=== PATIENT | female | born 1935 | race Hispanic/Latino ===

== ENCOUNTER → 2020-11-23 09:54 | Outpatient (CLI) | payer OTHER, SELFPAY ==
[2020-11-23 10:49] LABS: COVID19 -Nasal RAPID Negative (Negative)
== END ==
PROVIDERS: PCP Physician Assistant; Visit Provider Nurse Practitioner Family
DX: Z20.822 Contact with and (suspected) exposure to COVID-19 (principal)
CPT/HCPCS: 87635

== ENCOUNTER → 2020-11-23 14:31 | Outpatient (CLI) | payer OTHER, SELFPAY ==
[2020-11-23 15:36] LABS: Add Manual Diff / Slide Review NO; Basophils Absolute Auto 0 /uL (0-100); Basophils Percent Auto 0.2 % (0-2); Eosinophils Absolute Auto 100 /uL (0-450); Eosinophils Percent Auto 1.5 % (2-4); Hematocrit 41.5 % (36-46); Hemoglobin 13.9 g/dL (12.0-16.0); Lymphocytes Absolute Auto 2900 /uL (1100-4500); Lymphocytes Percent Auto 34.2 % (25-40); Mean Corpuscular HGB Conc 33.4 % (30-36); Mean Corpuscular Hemoglobin 29.9 PG (26-34); Mean Corpuscular Volume 89.3 fL (80-100); Monocytes Absolute Auto 600 /uL (0-900); Monocytes Percent Auto 6.8 % (3-14); Neutrophils Absolute Auto 4800 /uL (1500-7000); Neutrophils Percent Auto 57.3 % (50-75); Platelet Count 299 X10^3/uL (150-400); Red Blood Cell Count 4.64 X10^6/uL (4.0-5.2); Red Cell Distribution Width 13.7 % (11.6-14.8); White Blood Cell Count 8.3 X10^3/uL (4.5-11.0)
== END ==
PROVIDERS: PCP Physician Assistant; Referring Provider Orthopaedic Surgery; Visit Provider Orthopaedic Surgery
DX: Z01.812 Encounter for preprocedural laboratory examination (principal); Z20.822 Contact with and (suspected) exposure to COVID-19; I10 Essential (primary) hypertension
CPT/HCPCS: 36415; 85025; 87635; C9803

== ENCOUNTER 2020-11-24 06:20 | Day surgery (SDC) | payer OTHER, SELFPAY ==
[2020-11-24] VITALS (15 sets, daily range): BP systolic 127–167; BP diastolic 66–86; PULSE 82–95; RESP 10–20; TEMP 36.3–37; O2SAT 94–99; BMI 25.1
[2020-11-24] MEDS: LACTATED RINGERS 1,000 ML 42 ML IV (06:59)
--- NOTE | 2020-11-24 07:28 | PM.PREOP ---
Pre-operative Note COVID-19 COVID-19 status: Negative Result date/Date tested (Pos, Neg/Pending): 11/23/20 Interval Note History & Physical reviewed/Exam performed by Physician: Yes Changes to H&P: No
--- NOTE | 2020-11-24 07:41 | P.OP_ITS ---
Operative Date/Time/Diagnoses Date of procedure: 11/24/20 Time of procedure: 09:06 Pre-op diagnosis: Cervical stenosis with myelopathy Post-op diagnosis: same Procedure & Clinicians Procedure: C5-6 ACDF with cage Iliac crest bone graft aspirate Use of microscope Same procedure as scheduled: Yes Indications: [age] year old female with intractable pain from myelopathy. They had failed conservative management and requested operative intervention. Risks and benefits of surgery were discussed and appropriate consents were obtained. Surgeon: Ramón Cheung [facility] Art Therapist: Lori Shepherd Anesthesia Type: General Operative Notes Findings: None Closure Type: primary Specimen(s): none sent Prosthetic devices, grafts, tissues, transplants, or devices: Flavio JAZ-C Estimated Blood Loss (mL): 5 Procedure in detail: Patient was brought to the operating room and intubated on the table. A time-out was performed. Preoperative antibiotics were given. The neck was prepped and draped in the standard sterile fashion. Using a skin fold, we made a 3 cm oblique incision on the left side. We used Bovie to go through the platysma and then did a standard anterolateral blunt dissection down to the precervical fascia. Fascia was nicked and elevated up. A marker was placed and x-ray was taken for localization. We then subperiosteally elevated up the longus colli muscles. Self-retaining retractors were placed. [place] pins were placed. We then brought in the microscope. A scalpel used to perform an annulotomy. We then used a combination of pituitaries and curettes and Kerrison to perform a complete anterior diskectomy at C5-6. We used the bur to take down the posterior osteophytes. We took down the PLL and used Kerrison to remove any posterior disc material and osteophytes. At the end we could from the nerve hook cephalad caudally and out the foramen and everything was opened. A small stab incision was made over the left anterior iliac crest. A Jamshidi needle was advanced into the pelvis and 2 mL of bone marrow was aspirated. We then used the trials. The 5 mm height was completely loose and we had to go up to 6 mm. We then packed a 12 x 15 x 6 mm JAZ-C cage with Primagen bone graft and the iliac crest harvest. The cage was placed under fluoroscopic guidance. We then placed our two locking plates. The self-retaining retractors and [place] pins were removed and final x-rays taken. The wound was irrigated. There was no bleeding. The carotid was beating nicely. The platysma was closed. The superficial was closed. The skin was closed. A sterile dressing was placed. They were then extubated and brought to recovery room with no complications. Complications: none Post-operative Condition: stable Disposition: PACU Plan for aftercare: Overnight admission. Up with physical therapy. Soft collar for comfort.
[2020-11-24] MEDS: CEFAZOLIN 2 GM/100 ML FROZ.PIGGY IV (07:45)
[2020-11-24] MEDS: fentaNYL 100 MCG/2 ML INJ 50 MCG IV (07:59)
--- NOTE | 2020-11-24 08:00 | DI.RAD.S_ITS ---
PROCEDURE: XR CERVICAL SPINE 2V OR 3V INDICATIONS: C5-6 ACDF TECHNIQUE: Two intraoperative fluoroscopic spot view(s) of the cervical spine were acquired. COMPARISON: None. FINDINGS: There is C5-6 disc spacer and anterior fusion hardware. Overall alignment remains normal. There is moderate disc height loss and spurring at C3-4. IMPRESSION: Expected appearance of C5-6 ACDF. Dictated by: Julieta Iyer M.D. on 11/24/2020 at 10:20 Approved by: Julieta Iyer M.D. on 11/24/2020 at 10:21
--- NOTE | 2020-11-24 08:16 | SUR.OPER ---
Supine, head on gel donut. Arms padded with gel pads, tucked at sides, towel roll under shoulders. Safety belt at thigh. Legs uncrossed.
[2020-11-24] MEDS: BUPIVACAINE 0.25% W/ EPI (PF) 10 ML VIAL 20 ML INJ (08:29)
[2020-11-24] MEDS: THROMBIN (RECOMBINANT) 5,000 UNIT VIAL 5000 UNIT TOP (08:29)
[2020-11-24] MEDS: SODIUM CHLORIDE 0.9% 1,000 ML, GENTAMICIN 80 MG IRR (08:30)
[2020-11-24] MEDS: OXYCODONE IR 5 MG TABLET PO (09:52)
--- NOTE | 2020-11-24 10:35 | SUR.PHASEI ---
Pt was administered 0.8 of narcan just prior to arrival to PACU. Pt was held in pacu until 1028 then transported to room 228 in ICU for continue montoring until 1100. Pt will be under the care of abimael fuentes in ICU. She was transferred in stable condition
[2020-11-24] MEDS: LACTATED RINGERS 1,000 ML 125 ML IV ×2 (10:45→16:52)
--- NOTE | 2020-11-24 13:00 | PT.IIE ---
Current Diagnoses Spinal stenosis, cervical region (11/24/20) Surgery Performed Operation Date: 11/24/20 07:45 Actual Procedures p C56 anterior cervical discectomy and fusion w/ bone graft(Not Applicable) - Ramón Cheung MD Medical History (Last Updated 11/22/20 @ 17:08 by Sadaf Gonzalez RN) Arthritis Depression Fibromyalgia Stenosis of cervical spine with myelopathy Physical Therapy Inpatient Evaluation/Re-Eval M1 PT/OT-IP Prior Functional Status Start: 11/24/20 14:57 Freq: NEEDED Status: Active Protocol: Document 11/24/20 13:00 AB (Rec: 11/24/20 15:44 AB [id number]) Medical Review Prior Functional Status Medical History Reviewed Yes Communication able to make needs known Mobility and Gait pt stated that she is modified independent with mobility and uses a FWW for ambulation at all times; stated that she needs assistance with meals Social History Household Members friend(s) Living Arrangements House Number of Floors (Floors) Two Floors Number of Stairs To Enter/Railing? has steps to get into the house with R rail and also stairs to get to 2nd level bedroom; pt stated she does not remember how many steps there are Home Environment Standard Height Toilet,Walk in Shower Home Equipment Front Wheel Walker,Grab Bars In Shower Additional Social History Comment pt lives with a roommate but pt plans to go to her daughter -in-law's house upon d/c. M2 PT-IP Current Condition Start: 11/24/20 14:57 Freq: NEEDED Status: Active Protocol: Document 11/24/20 13:00 AB (Rec: 11/24/20 15:44 AB [id number]) Physical Therapy Current Condition Current Condition Evaluation Date 11/24/20 Treatment Diagnosis s/p C5-6 ACDF; difficulty in walking Onset Date 11/24/20 Precautions Cervical Spine Precautions Soft Collar for Comfort,No Heavy Lifting,Log Roll M3 PT-IP Subjective Start: 11/24/20 14:57 Freq: NEEDED Status: Active Protocol: Document 11/24/20 13:00 AB (Rec: 11/24/20 15:44 AB [id number]) Subjective Physical Therapy Visit Type Type Initial Evaluation Visit Start Time 13:00 Visit Stop Time 13:40 Total Visit Minutes 40 Number of WIND UP OPERATOR Visits 0 Physical Therapy Visit Comments Patient Comments pt is agreeable to do PT Therapy Pain Assessment Pain When Pain Assessed At Rest Pain Present Pain Present Pain Reported Location Neck Intensity 7 Scale Used Numeric (0 - 10) Pain Management Techniques Apply Heat,Modification of Treatment,Re-positioning, Timing of Activity with Medications M4 PT-IP Mobility and Gait Start: 11/24/20 14:57 Freq: NEEDED Status: Active Protocol: Document 11/24/20 13:00 AB (Rec: 11/24/20 15:44 AB [id number]) PT-Bed Mobility Assessment Supine to Sit Supine to Sit Standby Assistance Sit to Supine Sit to Supine Standby Assistance PT-Transfer Assessment Sit to and From Stand Sit to and from Stand Moderate Assistance,1 Person Assistance,Use of Upper Extremities Equipment Transfer Assistive Device Gait Belt,Front Wheeled Walker Orthotic/Prosthetic Devices or Brace: Yes Transfers Transfer Destination Toilet Transfer Technique ambulated using FWW Transfer Ability Level of Assist Moderate Assistance,Maximum Assistance,1 Person Assistance ,Use of Upper Extremities Comments Mobility Comments educated pt on cervical precautions and log roll bed mobility. pt c/o increase pain and can be short and snappy with responses and directs her own care. completed supine to sit cued for log roll but pt did not follow and gets irritated when corrected. increase posterior trunk leaning with initial sitting requiring mod to max A for support. pt completed sit to stand mod A and cues and requested to use the toilet. pt ambulated to the toilet using FWW mod to max A and cues. presents with unsteady shuffling gait. completed sit to stand from the toilet max A and ambulated to the sink using FWW mod to max A. pt was able to maintain standing mod A while completing handwashing. requested to go back to bed and ambulated towards the bed using FWW mod to max A. (+) LOB requiring max A for rebalancing. pt completed sit to supine SBA but did not follow log roll bed mobililty despite cues. positioned pt in bed. call light and table placed within reach. Gait Assessment Gait Gait Assistance Required: Moderate Assistance,Maximum Assistance,1 Person Assist Distance (Feet) 15 Able to Maintain Weight Bearing Status Yes During Gait Assistive Devices Assistive Device Gait Belt,Front Wheeled Walker Orthotic/Prosthetic Devices or Brace: Yes Gait Deviations General Gait Pattern Ataxic,Decreased Stride Length ,Decreased Feet Clearance, Narrow Based Gait,Step-to Gait Factors Limiting Gait Function Factors Limiting Gait Function Decreased Activity Tolerance, Decreased Strength,Difficulty Following Directions,Limited Range of Motion,Pain,Poor Balance,Poor Safety Awareness PT-Balance Assessment Sitting Balance and Reactions Static Sitting Balance Ability Fair Dynamic Sitting Balance Ability Poor Standing Balance and Reactions Static Standing Balance Ability Poor Dynamic Standing Balance Ability Poor Device Used FWW M5 PT-IP Objective Assessments Start: 11/24/20 14:57 Freq: NEEDED Status: Active Protocol: Document 11/24/20 13:00 AB (Rec: 11/24/20 15:44 AB [id number]) Orientation Orientation/Cognition Level of Alertness Alert Orientation Name Language Function Ability No Deficits Noted Safety Awareness Decreased Safety Awareness Memory Description Short Term Impaired Gross Range of Motion Lower Extremity ROM Assessment Within Functional Limits Strength Lower Extremity Strength Assessment Bilaterally Impaired Hip 3/5 Knee 3+/5 Coordination Assessment Gross Coordination Gross Coordination WNL Sensation Assessment Sensation Gross Sensation Right UE Impaired,Left UE Impaired,Right LE Impaired, Left LE Impaired Sensation Description Numbness Comments Sensation Comments stated that she has chronic BUE/LE numbness M6 PT-IP Treatment Start: 11/24/20 14:57 Freq: NEEDED Status: Active Protocol: Document 11/24/20 13:00 AB (Rec: 11/24/20 15:44 AB [id number]) Physical Therapy Treatment Education Education Provided Precautions,Weight Bearing Status,Post-Op Packet,Safety M7 PT-IP Assessment and Plan Start: 11/24/20 14:57 Freq: NEEDED Status: Active Protocol: Document 11/24/20 13:00 AB (Rec: 11/24/20 15:44 AB [id number]) PT Summary Assessment and Plan Potential Rehabilitation Potential Fair Status of Condition at Evaluation Evolving Summary Impairments Pain,ROM,Strength,Balance, Coordination,Sensation,Tone, Cognition,Bed Mobility, Transfers,Gait,Activity Tolerance Assessment Summary pt requiring mod to max A with mobility and c/o increase pain. pt also directs her own care and resistant to instructions. pt may require SNF rehab but if pt goes home, will need caregiver training and stair climbing training. will continue to assess progress. Goals Bed Mobility Goal Independent Transfer Goal Independent,Front Wheeled Walker Gait Goal Independent,Front Wheel Walker Gait Distance 150 Other Goals up/down 15 steps R rail ascending SBA Days to Meet Goals 0 Frequency of Treatment Frequency Of Treatment Twice a Day Treatment Plan Physical Therapy Treatment Plan Bed Mobility Training,Transfer Training,Gait Training, Therapeutic Exercise,Balance Retraining,Post Op Education, Discharge Planning,Hot or Cold Pack,Neuromuscular Re-ed, Coordination Retraining,Manual Therapy Recommendations To Nursing Amount of Assist Needed 1 Person Assist Discharge Recommendations PT Discharge Recommendations Home with 27/05 Assist,Home Health,SNF Rehab Transportation Needs at Discharge Private Vehicle,Wheelchair/ Cabulance
[2020-11-24] MEDS: HYDROCODONE/ACET 5/325 TABLET 1 TAB PO (14:07)
[2020-11-24] MEDS: hydrOXYzine pamoate 25 MG CAPSULE PO ×2 (14:07→19:57)
--- NOTE | 2020-11-24 15:23 | PC.NURSE ---
Postop Note Received pt to room 228 from PACU at 1035 for close monitoring until 1100 post Narcan administration. Pt on the monitor during this time, SR in the 80s. Pt is alert and oriented, able to make needs known. Reports pain 10/10 to neck but reports the oxycodone helped me. Educated on pain scale. sPo2 97-98% RA. Dressing to neck C/D/I with soft collar in place. Tingling/numbness to BUEs present, pt reports improved from preop, BUEs weak. BLEs heavy but pt reports unchanged from preop. Oriented to room and to call light/bed/tv controls. Call light within reach.
[2020-11-24] MEDS: CEFAZOLIN 1 GM/50 ML FROZ.PIGGY IV ×2 (16:38→23:17)
--- NOTE | 2020-11-24 16:42 | OT.IPNOTE ---
Pt not wanting to get up at this time , able to talk to pt about prior levle of care and home set-up.
--- NOTE | 2020-11-24 17:18 | DIET.PN ---
Dietary Progress Note Assessment: 85y F admitted for planned anterior cervical discectomy referred to nutrition for recent weight loss. Pt has severe cord compression at C6 c pain per surgeon note which is affecting her fine motor skills and appetite. Pt reports >3kg weight loss over past 3mo. HT: 142.2cm WT: 50.8kg BMI: 25.1 MNA:9 @ risk Eliot: 18 Nutrition Diagnosis: inadequate protein intake r/t increased protein needs and reduced appetite aeb pt reports sx of reduced fine motor skills and pain limiting appetite, pt is post-surgical so requires increased protein for healing, MNA 9. Interventions: 1. Recc softer texture foods s/p anterior surgical surgery. 2. Recc Ensures bid to be consumed between meals to support pro needs. Diet Order: General
[2020-11-24] MEDS: HYDROCODONE/ACET 5/325 TABLET 2 TAB PO (19:57)
[2020-11-24] MEDS: GABAPENTIN 300 MG CAPSULE PO (21:14)
[2020-11-24] MEDS: DOCUSATE 100 MG CAPSULE PO (21:14)
[2020-11-24] MEDS: SENNOSIDES 8.6 MG TABLET 17.2 MG PO (21:14)
[2020-11-24] MEDS: CELECOXIB 200 MG CAPSULE PO (21:14)
--- NOTE | 2020-11-25 00:55 | PC.NURSE ---
2334 patient is alert and oriented. Breath sounds CTA with RA sat of 97%. HRR with BP of 139/78 consistent with previous readings. Denies nausea. BT present and is passing flatus. Denies dysuria, frequency or urgency with urination and is continent. Able to turn self in bed. Up to bathroom with walker and 1 assist. Dressing to anterior neck/left iliac crest are CDI; wearing soft collar. States pain in posterior neck is 2/10 but tolerable and declines medication; provided with ice pack. Bilateral hand pain which she states was present pre-op and now much improved. Wearing bilateral foot SCD's. Fall risk score is high and bed alarm is activated.
[2020-11-25] MEDS: LACTATED RINGERS 1,000 ML 125 ML IV (01:28)
[2020-11-25 04:00] VITALS: BP 123/61; PULSE 77; RESP 18; TEMP 36.8; O2SAT 95
[2020-11-25] MEDS: HYDROCODONE/ACET 5/325 TABLET 1 TAB PO (04:35)
[2020-11-25] MEDS: PANTOPRAZOLE 20 MG TABLET PO (06:13)
--- NOTE | 2020-11-25 07:50 | PM.PNPO.1 ---
Subjective Subjective Date Patient Seen: 11/25/20 Time Patient Seen: 07:50 Interval history: She is doing well. Still pain at the base of the neck but the arms feel much better. Exam Vital Signs (past 8 hours): - 11/25/20 04:00 Temperature 98.3 F Pulse Rate 77 Respiratory Rate 18 Blood Pressure 123/61 Pulse Oximetry 95 Oxygen Delivery Method Room Air Oxygen Flow Rate 0 Const Orientation: alert and oriented x3 Back/Spine/Pelvis Other: CDI. 5/5 motor both upper extremities except for slight 5-/5 bilateral counter intelligence agent Objective Labs Labs: Laboratory Results - last 24 hr 11/24/20 11:05 Nasal Screen MRSA (PCR) Negative for mrsa [facility] Medical History (Updated 11/22/20 @ 17:08 by Sadaf Gonzalez RN) Arthritis Depression Fibromyalgia Stenosis of cervical spine with myelopathy Social History household members: friend(s) Smoking Status: Never smoker alcohol intake: never Assessment & Plan Post-op Postoperative Procedures: Procedures Operation Date: 11/24/20 07:45 Actual Procedures Side Surgeon p C56 anterior cervical discectomy and fusion w/ bone graft Not Applicable Ramón Cheung MD She is doing very well. Mobilize with therapy and then discharge home today Quality VTE Deep Vein Thrombosis/Pulmonary Embolism Present on Admission: No
[2020-11-25 07:51] VITALS: BP 142/75; PULSE 80; RESP 19; TEMP 36.3; O2SAT 95
[2020-11-25] MEDS: BENZOCAINE/MENTHOL 1 LOZ PKT 1 EACH PO ×2 (08:34→11:29)
[2020-11-25] MEDS: DULOXETINE 30 MG CAPSULE 90 MG PO (08:36)
[2020-11-25] MEDS: CELECOXIB 200 MG CAPSULE PO (08:37)
[2020-11-25] MEDS: DOCUSATE 100 MG CAPSULE PO (08:37)
[2020-11-25] MEDS: MAGNESIUM HYDROXIDE 30 ML UDC PO (08:41)
--- NOTE | 2020-11-25 09:33 | PC.NURSE ---
Addendum entered by Holly Juárez R.N. 11/25/20 13:10: PT cleared pt for DC. DIL in room. All packed up, changed into personal clothing, nothing remaining in outlets, DC education provided, no questions remain. PIV removed and tolerated well. Provided dressing change supplies. Addendum entered by Holly Juárez R.N. 11/25/20 11:35: OT worked with pt this AM and pt got a little unsteady sitting up in bed. PT requesting caregiver training with daughter in law before DC. DIL will arrive around noon. IS provided to patient and provided education on use. pt able to use 5 times at 1000. Lozenges to help ease throat irritation. Original Note: AM shift note. pt AO and receptive to care. Right hand PIV saline locked and fluids held this AM per order. pt reporting 2/10 pain to neck and tolerable. Breakfast pt requested a lozenge due to pain swallowing harder foods (kirkpatrick) so pt switched to apple sauce and pudding. Soft collar to neck, incision has gauze with tegaderm CDI, left hip site has steri-stips and tegaderm, CDI. Last BM 11/23 and pt asking for bowel medications to assist. I administered docusate and milk of mag this AM with other morning medications.
--- NOTE | 2020-11-25 09:37 | ST.IPSCREEN ---
Screened pt status post ACDF for vocal and swallowing. Pt reported that she fees good and reported no difficulty with swallowing or voice. Written information was provided to pt.
--- NOTE | 2020-11-25 10:20 | OT.IP.EVAL ---
Current Diagnoses Spinal stenosis, cervical region (11/24/20) Surgery Performed Operation Date: 11/24/20 07:45 Actual Procedures p C56 anterior cervical discectomy and fusion w/ bone graft(Not Applicable) - Ramón Cheung MD Past Medical History (Last Updated 11/22/20 @ 17:08 by Sadaf Gonzalez RN) Arthritis Depression Fibromyalgia Stenosis of cervical spine with myelopathy Occupational Therapy Inpatient Evaluation/Re-Eval M1 PT/OT-IP Prior Functional Status Start: 11/24/20 14:57 Freq: NEEDED Status: Active Protocol: Document 11/25/20 11:59 CGR (Rec: 11/25/20 12:18 CGR [id number]) Medical Review Prior Functional Status Medical History Reviewed Yes Communication able to make needs known but is [place] Mobility and Gait Pt stated that she is modified independent with mobility and uses a FWW for ambulation at all times for the last 3 months; stated that she needs assistance with meals Activities of Daily Living and IADL's Pt states that she was IND to MOD I for ADLs and had assist with most IADLs. She states that she needed extra time for all activities. Social History Household Members friend(s) Living Arrangements House Number of Floors (Floors) Two Floors Number of Stairs To Enter/Railing? has steps to get into the house with R rail and also stairs to get to 2nd level bedroom; pt stated she does not remember how many steps there are Home Environment Standard Height Toilet,Walk in Shower Home Equipment Front Wheel Walker,Grab Bars In Shower Additional Social History Comment pt lives with a roommate but pt plans to go to her daughter -in-law's house upon d/c. Information above is for her daughter in laws house. M2 OT-IP Current Condition Start: 11/25/20 11:59 Freq: Status: Active Protocol: Document 11/25/20 11:59 CGR (Rec: 11/25/20 12:18 CGR [id number]) Occupational Therapy Current Condition Current Condition Evaluation Date 11/25/20 Treatment Diagnosis C5-6 ACDF Diagnosis Onset Date 11/24/20 Post Operative Precautions Cervical Spine Precautions Soft Collar for Comfort,No Heavy Lifting,Log Roll M3 OT- IP Subjective and Pain Start: 11/25/20 11:59 Freq: Status: Active Protocol: Document 11/25/20 11:59 CGR (Rec: 11/25/20 12:18 CGR [id number]) OT- Subjective Occupational Therapy Visit Type Type Initial Evaluation Visit Start Time 09:46 Visit Stop Time 10:20 Total Visit Minutes 34 OT Pain Assessment Pain When Pain Assessed At Rest Pain Present Pain Present Denied Pain M4 OT- IP ADL's Start: 11/25/20 11:59 Freq: Status: Active Protocol: Document 11/25/20 11:59 CGR (Rec: 11/25/20 12:18 CGR [id number]) OT [id number] Comments OT Self-Feeding Comments Not meal time OT ADL-Grooming Comments OT Grooming Comments Not performed, pt states she performed this AM OT ADL-Oral Care Comments Oral Care Comments Not performed, pt states she performed this AM OT ADL-Dressing General Eval Lower Body Dressing Ability Maximum Assistance Areas Needing Assistance Socks Comments OT Dressing Comments Pt states her daughter in law will help her with dressing and that she has impregnator helper for dressing and has been trained in the past. OT ADL-Toileting General Evaluation Toileting Ability Standby Assistance Areas Needing Assistance Manage Clothing Comments OT Toileting Comments seated on toilet for urination . OT ADL-Bathing Comments OT Bathing Comments not performed M5 OT- IP IADL's Start: 11/25/20 11:59 Freq: Status: Active Protocol: Document 11/25/20 11:59 CGR (Rec: 11/25/20 12:18 CGR [id number]) OT-Instrumental Activities of Daily Living Deficits IADL Deficits Identified No Deficits Home Safety Awareness Awareness of Need for Assistance at Home Good Awareness Ability to Problem Solve Emergency Able to Problem Solve Situations Medication Management Medication Management No Deficits Identified Money Management Money Management No Deficits Identified Meal Preparation Meal Preparation Caregiver Provides Assist Hunting Sales Leader Hunting Sales Leader Caregiver Provides Assist Driving Driving Comments Pt does not drive M6 OT- IP Functional Cognition Start: 11/25/20 11:59 Freq: Status: Active Protocol: Document 11/25/20 11:59 CGR (Rec: 11/25/20 12:18 CGR [id number]) Cognitive Factors Limiting Selfcare Function Cognitive Ability Level of Alertness Alert Patient Orientation Name,Age,Birthday,Month,Date, Year,Day of Week,Place, Situation Attention Span Ability Capable of Focused Attention, Capable of Sustained Attention Ability to Follow Commands Able to Follow One Step Commands with Increased Time, Able to Follow One Step Commands with Repetition Cognitive Comments Cognitive Assessment Comments Pt appears with minimal memory deficits but she is able to identify errors with minimal assist. OT- Vision and Hearing OT- Hearing Assessment OT- Hearing Assessment Hearing Impaired OT- Vision Assessment Visual Acuity WFL Visual Attentiveness WFL Occular Pursuits WFL Visual Convergence WFL M7 OT- IP Mobility and Balance Start: 11/25/20 11:59 Freq: Status: Active Protocol: Document 11/25/20 11:59 CGR (Rec: 11/25/20 12:18 CGR [id number]) OT- Bed Mobility Assessment Rolling Type of Rolling Log Rolling,Roll to Right Level of Assistance Minimal Assistance Supine to Sit Supine to Sit Assist Contact Guard Assistance Sit to Supine Sit to Supine Assist Contact Guard Assistance Scooting Scooting to Edge of Bed Standby Assistance OT-Transfer Assessment Sit to and From Stand Sit to and from Stand Contact Guard Assistance, Minimal Assistance Transfers Transfer Ability Contact Guard Assistance, Minimal Assistance Technique Transfer Destination Bed,Toilet Transfer Technique Stand Step Pivot Devices Transfer Assistive Devices Gait Belt,Front Wheeled Walker Comments Mobility Comments Pt's FWW is too high for pt. It was adjusted to its lowest setting and discussed with pt that she would benefit from a correctly sized walker. Pt mobilizes with CGA to min a. OT- Gait Assessment Gait Gait Assistance Required: Contact Guard Assist,Minimum Assistance Assistive Devices Assistive Device Gait Belt,Front Wheeled Walker OT- Balance Assessment Sitting Balance and Reactions Static Sitting Balance Ability Poor Dynamic Sitting Balance Ability Poor M8 OT- IP Objective Assessments Start: 11/25/20 11:59 Freq: Status: Active Protocol: Document 11/25/20 11:59 CGR (Rec: 11/25/20 12:18 CGR [id number]) OT Gross Range of Motion Upper Extremity Range of Motion Assessment Within Functional Limits OT Strength Comments Strength Comments grossly 4/5 OT- Coordination Assessment Upper Extremity Finger to Nose Test Within Functional Limits Finger Tapping Test Within Functional Limits OT-Muscle Tone Assessment Muscle Tone WNL Yes OT Sensation Assessment Edema Edema Absent M9 OT- IP Assessment and Plan Start: 11/25/20 11:59 Freq: Status: Active Protocol: Document 11/25/20 11:59 CGR (Rec: 11/25/20 12:18 CGR [id number]) OT Summary Assessment and Plan Potential Rehabilitation Potential Good Analytic Complexity at Evaluation Low Summary OT Impairments Balance,Functional Cognition, Functional Mobility,Dressing, Toileting,Bathing,Toilet Transfers,Shower Transfers, Activity Tolerance Progress Towards Goals Progressing Toward Goals,Slow Progress due to Activity Tolerance Assessment Summary Pt presents as a low complexity evaluation s/p admit. Pt with poor sitting balance requiring max a for a loss of balance. Pt will benefit from continued therapy services and needs 24/7 care upon initial discharge. P.T. notified of pt's loss of balance and will address in caregiver training today. Pt is planned for d/c home with daughter in law. Goals Grooming Goal Independent Dressing Goal Independent Toileting Goal Independent Bathing Goal Independent Toilet Transfer Goal Independent Shower Transfer Goal Independent Days to Meet Goals 10 Frequency of Treatment Frequency Of Treatment Once a Day Treatment Plan OT Treatment Plan ADL Training,Functional Mobility,Patient/Family Education,Discharge Planning Other Treatment Recommendations and Next shower Treatment Focus Discharge Recommendations OT Discharge Recommendations Home with 24/7 Assist Transportation Needs at Discharge Private Vehicle
--- NOTE | 2020-11-25 10:40 | PT-IP ANOTE ---
Attempted to see patient at 10:40, patient refused therapy stating she would like to conserve energy for caregiver training at 12 PM.
[2020-11-25 11:28] VITALS: BP 139/69; PULSE 77; RESP 18; TEMP 36.9; O2SAT 96
--- NOTE | 2020-11-25 12:21 | PT.IPTN ---
Current Diagnoses Spinal stenosis, cervical region (11/24/20) Surgery Performed Operation Date: 11/24/20 07:45 Actual Procedures p C56 anterior cervical discectomy and fusion w/ bone graft(Not Applicable) - Ramón Cheung MD Physical Therapy Treatment Note M2 PT-IP Current Condition Start: 11/24/20 14:57 Freq: NEEDED Status: Active Protocol: Document 11/24/20 13:00 AB (Rec: 11/24/20 15:44 AB [id number]) Physical Therapy Current Condition Current Condition Evaluation Date 11/24/20 Treatment Diagnosis s/p C5-6 ACDF; difficulty in walking Onset Date 11/24/20 Precautions Cervical Spine Precautions Soft Collar for Comfort,No Heavy Lifting,Log Roll M3 PT-IP Subjective Start: 11/24/20 14:57 Freq: NEEDED Status: Active Protocol: Document 11/25/20 11:57 KS (Rec: 11/25/20 12:38 KS [id number]) Subjective Physical Therapy Visit Type Type Treatment Note Visit Start Time 11:57 Visit Stop Time 12:21 Total Visit Minutes 24 Number of BREAST SPLITTER Visits 1 Physical Therapy Visit Comments Patient Comments pt is agreeable to do PT. Pts DIL present for caregiver training. M4 PT-IP Mobility and Gait Start: 11/24/20 14:57 Freq: NEEDED Status: Active Protocol: Document 11/25/20 11:57 KS (Rec: 11/25/20 12:38 KS [id number]) PT-Bed Mobility Assessment Rolling Type of Rolling Log Rolling,Roll to Right Supine to Sit Supine to Sit Standby Assistance Sit to Supine Sit to Supine Contact Guard Assistance Scooting Scooting to Edge of Bed Standby Assistance PT-Transfer Assessment Sit to and From Stand Sit to and from Stand Standby Assistance,Contact Guard Assistance,1 Person Assistance,Use of Upper Extremities Equipment Transfer Assistive Device Gait Belt,Front Wheeled Walker Orthotic/Prosthetic Devices or Brace: Yes Transfers Transfer Destination Bed,Chair,Wheelchair Transfer Ability Level of Assist Standby Assistance,Contact Guard Assistance,1 Person Assistance,Use of Upper Extremities Comments Mobility Comments Pt in chair upon arrival from therapy. BERHANE Oliveros familiar with and able to enrique gaitbelt and provide CGA and cues for sit<>Stand w/ FWW. Pt then ambulated ~10 ft to w/c w/ FWW and CGA by DIL to be transported to stairs for energy conservation. Pt ascended/descended 3 steps x2 w/ R hand rail step to pattern w/ CGA and cues for sequencing provided safely and appropriately by pts DIL. Pt then ambulated additional ~40 ft w/ FWW SBA to CGA from DIL. Pt returned to room and performed logroll into and out of bed SBA to CGA and cues. Pts DIL and pt state they feel safe to return home today and have no further concerns or needs. Gait Assessment Gait Gait Assistance Required: Standby Assistance,Contact Guard Assist,1 Person Assist Distance (Feet) 50 Able to Maintain Weight Bearing Status Yes During Gait Assistive Devices Assistive Device Gait Belt,Front Wheeled Walker Orthotic/Prosthetic Devices or Brace: Yes Gait Deviations General Gait Pattern Ataxic,Decreased Stride Length ,Decreased Feet Clearance, Narrow Based Gait,Step-to Gait Factors Limiting Gait Function Factors Limiting Gait Function Decreased Activity Tolerance, Decreased Strength,Difficulty Following Directions,Limited Range of Motion,Pain,Poor Balance,Poor Safety Awareness Comments Gait Comments Pt ambulated ~50 ft total w/ FWW and SBA to CGA provided safely by pts DIL. Stair Climbing Assessment Evaluation Level of Assist On Stairs Contact Guard Assistance,1 Person Assistance Devices Stair Climbing Assistive Devices Right Railing Technique/Endurance Stair Climbing Direction Ascend and Descend Stair Climbing Technique Step to Step Number of Steps Climbed 3 Stair Climbing Set # Repetitions (reps) 2 Comments Stair Climbing Comments Pt ascended/descended 6 total steps w/ BUE using R rail ascending step to pattern and CGA w/ cues for sequencing provided safely by pts DIL. Pt and DIL state they feel safe to complete steps at home and confirm pt will not ascend steps alone and only needs to ascend 1 set of 6 stairs 1 time and then can stay on that floor. PT-Balance Assessment Sitting Balance and Reactions Static Sitting Balance Ability Good Dynamic Sitting Balance Ability Fair Standing Balance and Reactions Static Standing Balance Ability Fair Dynamic Standing Balance Ability Fair Device Used FWW M5 PT-IP Objective Assessments Start: 11/24/20 14:57 Freq: NEEDED Status: Active Protocol: Document 11/24/20 13:00 AB (Rec: 11/24/20 15:44 AB [id number]) Orientation Orientation/Cognition Level of Alertness Alert Orientation Name Language Function Ability No Deficits Noted Safety Awareness Decreased Safety Awareness Memory Description Short Term Impaired Gross Range of Motion Lower Extremity ROM Assessment Within Functional Limits Strength Lower Extremity Strength Assessment Bilaterally Impaired Hip 3/5 Knee 3+/5 Coordination Assessment Gross Coordination Gross Coordination WNL Sensation Assessment Sensation Gross Sensation Right UE Impaired,Left UE Impaired,Right LE Impaired, Left LE Impaired Sensation Description Numbness Comments Sensation Comments stated that she has chronic BUE/LE numbness M6 PT-IP Treatment Start: 11/24/20 14:57 Freq: NEEDED Status: Active Protocol: Document 11/25/20 11:57 KS (Rec: 11/25/20 12:38 KS [id number]) Physical Therapy Treatment Education Education Provided Precautions,Weight Bearing Status,Post-Op Packet,Safety M7 PT-IP Assessment and Plan Start: 11/24/20 14:57 Freq: NEEDED Status: Active Protocol: Document 11/25/20 11:57 KS (Rec: 11/25/20 12:38 AL [id number]) PT Summary Assessment and Plan Potential Rehabilitation Potential Good Status of Condition at Evaluation Evolving Summary Impairments Pain,ROM,Strength,Balance, Coordination,Sensation,Tone, Cognition,Bed Mobility, Transfers,Gait,Activity Tolerance Progress Towards Goals Progressing Toward Goals Assessment Summary Patient showed improvements in all aspects this PM. SBA to CGA for bed mobility, CGA for sit<>Stand, SBA to CGA for ambulation w/ FWW, and CGA and cues for stairs. Completed caregiver training with pts BERHANE Oliveros, who was able to provide appropriate cues and assist for bed mboility, transfers, ambulation, and stairs. Pt tolerated ~50 ft ambulation w/ FWW and 6 total steps w/ BUE using R hand rail CGA. Pt and BERHANE state they feel safe to return home. Goals Bed Mobility Goal Independent Transfer Goal Independent,Front Wheeled Walker Gait Goal Independent,Front Wheel Walker Gait Distance 150 Other Goals up/down 15 steps R rail ascending SBA Days to Meet Goals 0 Frequency of Treatment Frequency Of Treatment Twice a Day Treatment Plan Physical Therapy Treatment Plan Bed Mobility Training,Transfer Training,Gait Training, Therapeutic Exercise,Balance Retraining,Post Op Education, Discharge Planning,Hot or Cold Pack,Neuromuscular Re-ed, Coordination Retraining,Manual Therapy Recommendations To Nursing Amount of Assist Needed 1 Person Assist Discharge Recommendations PT Discharge Recommendations Home with / Assist,Home Health,SNF Rehab Transportation Needs at Discharge Private Vehicle,Wheelchair/ Cabulance
--- NOTE | 2020-11-25 13:58 | CM.DANOTE ---
DCP/Assessment: Reviewed chart. Patient is a 85yr old female admitted [facility] surgery performed on 11-24-19. PCP is Malena Palma at [facility]. Primary payor is 1)[employer]. Met with patient this AM explained CM/SW role. Patient reports that she will be staying with her DIL/Arlin at time of d/c. Patient reports that she has all needed DME. At this time therapy evaluations pending. Patient most likely will d/c today. P: Home. ATUL Preciado Discharge Planning/Care Management CM Discharge Assessment Start: 11/25/20 11:29 Freq: Status: Discharge Protocol: Document 11/25/20 13:27 KJS (Rec: 11/25/20 13:58 KJS [id number]) Discharge Planning Assessment Assigned Pole Framer Machine ATUL Preciado Contact Information Arlin (D-I-L) # [phone] Advance Directives? No History Provided By Patient,Medical Record Prior Living Arrangements House Household Members friend(s) Type of transporation used prior to Relies on Others admit Independent with ADL's No Is patient alert and oriented? Yes Caregiver for Another No DME Already Rented / Owned FWW / Walker Barriers to Discharge No Discharge Plan Home Transportation Arrangement Family to provide transport Whiteboard Updated in Patient Room with Yes name and ext. # of Pole Framer Machine Review Status In Process Next Review Type Continued Stay Review Pre-Anesthesia Assessment Start: 11/22/20 17:06 Freq: Status: Complete Protocol: Document 11/22/20 17:06 PUJA (Rec: 11/22/20 17:13 PUJA [id number]) Pre-Anesthesia Assessment Primary Care Provider Marcelo Kinsey Seen Specialist in Last 12 Months Yes Specialist Seen Orthopedist Musculoskeletal Symptoms Numbness,Radiating Pain into Limb,Tingling Have you had any close contact with No: checked only to file data someone diagnosed with COVID-19?
== END 2020-11-25 13:11 | disposition home or self-care (01) ==
LOC: OR 06:51 → ICU 12:53 → AC 11-25 07:54 → ICU 11-28 13:53
PROVIDERS: PCP Physician Assistant; Referring Provider Physician Assistant; Visit Provider Orthopaedic Surgery
PROC: (CPT 22551; principal; 2020-11-24 07:45)
DX: M48.02 Spinal stenosis, cervical region (principal); G95.89 Other specified diseases of spinal cord; M79.7 Fibromyalgia; F32.9 Major depressive disorder, single episode, unspecified; M19.90 Unspecified osteoarthritis, unspecified site
CPT/HCPCS: 22551; 20939; 22853; 72040; 76000; 82962; 87797; 97116; 97162; 97165; 97530; 97535; C1776; J0690; J1100; J2310; J2405; J2704; J3010